=== PATIENT | male | born 2000 | race Caucasian/White ===

== ENCOUNTER 2019-04-03 18:33 | Emergency (ER) | payer OTHER ==
[~2019-04-03] VITALS: Ht 175.3 cm; Wt 90.9 kg
[2019-04-03] MEDS ORDERED: IBUPROFEN 600 MG TABLET PO ONE (19:30)
[2019-04-03 20:49] VITALS: BP 122/66
== END 2019-04-03 20:45 | disposition home or self-care (01) ==
LOC: EMS 18:36
DX: S63.501A Unspecified sprain of right wrist, initial encounter (principal); F17.210 Nicotine dependence, cigarettes, uncomplicated; W18.39XA Other fall on same level, initial encounter; Y93.89 Activity, other specified; Y92.89 Other specified places as the place of occurrence of the external cause; Y99.8 Other external cause status
CPT/HCPCS: 99406